=== PATIENT | female | born 1955 | race Caucasian/White ===

== ENCOUNTER → 2021-09-27 | Outpatient (CLI) | payer MEDICARE, OTHER ==
[~2021-09-27] MED LIST: ALPRAZOLAM0.5 MG PO; DILTIAZEM ER360 M1 PO; DOCUSATE SODIU250 MG PO; ESCITALOPRAM OX20 MG PO; FAMOTIDINE40 MG PO; HYDROCODONE-AC1 EACH PO; IBUPROFEN600 MG PO; LAMOTRIGINE25 MG PO; METOPROLOL SUCC25 MG PO; PHENERGAN 25 MG25 M1 PO; TRAZODONE HCL150 MG PO; ZOFRAN ODT 4 MG4 MG PO
[2021-09-27 11:41] LABS: HEMOGLOBIN 14.2 gm/dl (12.3-15.3); RED BLOOD COUNT 4.81 M/UL (4.00-5.10)
[2021-09-27 12:24] LABS: BUN/CREATININE RATIO 29 (0-10)
== END ==
LOC: OPSV2 09-21 11:00
PROVIDERS: Obstetrics & Gynecology
DX: Z01.818 Encounter for other preprocedural examination (principal); N81.9 Female genital prolapse, unspecified; I10 Essential (primary) hypertension
CPT/HCPCS: 36415; 80053; 81001; 85025; 93005

== ENCOUNTER 2021-10-01 07:31 | Day surgery (SDC) | payer MEDICARE, OTHER ==
[~2021-10-01] VITALS: Ht 154.9 cm; Wt 62.6 kg
[~2021-10-01 07:31] MED LIST changes: -DOCUSATE SODIU250 MG PO; -HYDROCODONE-AC1 EACH PO; -IBUPROFEN600 MG PO; -PHENERGAN 25 MG25 M1 PO
[2021-10-01] MEDS ORDERED: PHENERGAN 25 MG25 M1 PO (08:12)
[2021-10-01] MEDS ORDERED: IBUPROFEN600 MG PO (13:15)
[2021-10-01] MEDS ORDERED: HYDROCODONE-AC1 EACH PO (13:15)
[2021-10-01] MEDS ORDERED: DOCUSATE SODIU250 MG PO (13:15)
[2021-10-01 19:42] LABS: HEMOGLOBIN 12.3 gm/dl (12.3-15.3); RED BLOOD COUNT 4.21 M/UL (4.00-5.10); WHITE BLOOD COUNT 9.9 K/UL (4.5-11.0)
[2021-10-01 19:57] LABS: BUN/CREATININE RATIO 19 (0-10)
[2021-10-02 02:19] LABS: HEMOGLOBIN 12.7 gm/dl (12.3-15.3); RED BLOOD COUNT 4.26 M/UL (4.00-5.10); WHITE BLOOD COUNT 12.3 K/UL (4.5-11.0)
[2021-10-02 02:36] LABS: BUN/CREATININE RATIO 19 (0-10)
== END 2021-10-02 17:44 | disposition home or self-care (01) ==
LOC: OR 07:31 → PROG CARE 15:34 → OR 10-02 17:44
PROVIDERS: Physician Assistant
DX: N81.10 Cystocele, unspecified (principal); E78.5 Hyperlipidemia, unspecified; N81.6 Rectocele; E11.9 Type 2 diabetes mellitus without complications; M06.9 Rheumatoid arthritis, unspecified; K75.81 Nonalcoholic steatohepatitis (NASH); G90.50 Complex regional pain syndrome I, unspecified; J45.909 Unspecified asthma, uncomplicated; G40.909 Epilepsy, unspecified, not intractable, without status epilepticus; G89.4 Chronic pain syndrome; Z88.5 Allergy status to narcotic agent; Z88.6 Allergy status to analgesic agent; Z20.822 Contact with and (suspected) exposure to COVID-19
CPT/HCPCS: 36415; 71045; 80048; 85025; C1769; J0690; J1100; J1170; J2001; J2060; J2270; J2405; J2704; J2710; J3010; J7050; J7120